=== PATIENT | female | born 1950 | race Two or more races ===

== ENCOUNTER 2021-03-11 06:00 | Day surgery (SDC) | payer OTHER | END 2021-03-11 10:50 | disposition home or self-care (01) | LOC: AMB-ENDOS 06:00 | PROVIDERS: ATTEND Surgery | DX: D13.0 Benign neoplasm of esophagus (principal); D13.1 Benign neoplasm of stomach; D13.2 Benign neoplasm of duodenum; K44.9 Diaphragmatic hernia without obstruction or gangrene; Z20.822 Contact with and (suspected) exposure to COVID-19 ==

== ENCOUNTER 2025-04-22 10:00 | Day surgery (SDC) | payer OTHER ==
[2025-04-21 08:50] VITALS: BP 150/86
[2025-04-21 09:06] LABS: BASO % 0.6 % (0.1-1.2); EOS # 0.18 (0.04-0.54); EOS % 2.2 % (0.7-7.0); LYMPH # 1.46 (1.18-3.74); LYMPH % 17.8 % (19.3-53.1); MEAN PLATELET VOLUME 12.50 fl (9.4-12.4); MONO # 0.69 (0.24-0.82); MONO % 8.4 % (4.7-12.5); NEUT # 5.81 (1.56-6.13); NEUT % 70.8 % (34.0-71.1); RED CELL DISTRIBUTION WIDTH 14.4 % (11.6-14.4)
[2025-04-21 09:11] LABS: URINE APPEARANCE Clear; URINE BILIRRUBIN Negative (NEGATIVE); URINE BLOOD Negative; URINE COLOR Yellow; URINE GLUCOSE Negative (NEGATIVE); URINE KETONE Negative (NEGATIVE); URINE LEUKOCYTE Small; URINE NITRATE Negative; URINE PROTEIN Negative (NEGATIVE); URINE UROBILINOGEN 0.2 E.U./dl
[2025-04-21 09:15] LABS: URINE BACTERIA 13.2 uL (0.0-1933); URINE EPITHELIAL CELLS 5.2 uL (0.0-38.8); URINE RBC 7.7 uL (0.0-20.8); URINE WBC 16.3 uL (0.0-23.2)
[2025-04-21 09:22] LABS: INR 0.97
[2025-04-21 09:25] LABS: URINE CAST 0.00 uL (0.0-1.40)
[2025-04-21 10:42] LABS: BUN CREA RATIO 17.0 (7.0-25.0); CREATININE SERUM 0.9 mg/dL (0.55-1.02); GFR 61.21; GLUCOSE FASTING 118.0 mg/dL (65-100); OSMOLALITY SERUM 287.0 MOSM/KG (275-295)
[2025-04-21 10:43] LABS: ALT/SGPT 65.0 U/L (12-78); AST/SGOT 30.0 U/L (15-37); BILIRUBIN TOTAL 0.92 mg/dL (0.3-1.2); GLOBULINA 3.4 G/DL (2.4-3.5)
[~2025-04-22] VITALS: Ht 160 cm; Wt 65.3 kg
[~2025-04-22 10:00] MED LIST: CLONAZEPAM0.5 MG PO; LEVO-T25 MCG PO; PROTONIX20 MG PO; WELLBUTRIN XL300 MG PO
[2025-04-22] MEDS ORDERED: CEFAZOLIN SODIUM 1,000 MG VIAL ONE (11:05)
[2025-04-22] MEDS ORDERED: BUPIVACAINE HCL/MPF 0.5% 30ML VIAL ONE (13:14)
== END 2025-04-22 16:25 | disposition home or self-care (01) ==
LOC: CIR.AMB 10:00
PROVIDERS: ATTEND Orthopaedic Surgery Hand Surgery
DX: S52.532A Colles' fracture of left radius, initial encounter for closed fracture (principal); M24.532 Contracture, left wrist
CPT/HCPCS: 25609; 25118; 25280; L8699